=== PATIENT | female | born 2005 | race Caucasian/White ===

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

== ENCOUNTER → 2024-11-17 | Outpatient (CLI) | payer SELFPAY ==
[2024-11-17 09:29] LABS: hCG Titer Quant., Serum 149 mIU/mL (1-3)
== END | disposition home or self-care (01) ==
PROVIDERS: PCP Family Medicine; Referring Provider Advanced Practice Midwife; Visit Provider Advanced Practice Midwife
DX: O20.9 Hemorrhage in early pregnancy, unspecified (principal); Z3A.00 Weeks of gestation of pregnancy not specified

== ENCOUNTER → 2024-11-26 | Outpatient (CLI) | payer OTHER, SELFPAY ==
[2024-11-26 13:37] LABS: hCG Titer Quant., Serum 4 mIU/mL (1-3)
== END | disposition home or self-care (01) ==
LOC: LAB 12:22
PROVIDERS: PCP Family Medicine; Referring Provider Obstetrics & Gynecology; Visit Provider Obstetrics & Gynecology
DX: O03.9 Complete or unspecified spontaneous abortion without complication (principal)
CPT/HCPCS: 36415; 84702

== ENCOUNTER → 2024-12-23 | Outpatient (CLI) | payer OTHER, SELFPAY ==
[2024-12-23 16:26] LABS: hCG Titer Quant., Serum 809 mIU/mL (1-3)
== END | disposition home or self-care (01) ==
LOC: LAB 15:03
PROVIDERS: PCP Family Medicine; Referring Provider Obstetrics & Gynecology; Visit Provider Obstetrics & Gynecology
DX: Z34.90 Encounter for supervision of normal pregnancy, unspecified, unspecified trimester (principal)
CPT/HCPCS: 36415; 84702

== ENCOUNTER → 2024-12-25 | Outpatient (CLI) | payer OTHER, SELFPAY ==
[2024-12-25 14:33] LABS: hCG Titer Quant., Serum 1029 mIU/mL (1-3)
== END | disposition home or self-care (01) ==
LOC: LAB 12:38
PROVIDERS: PCP Family Medicine; Referring Provider Obstetrics & Gynecology; Visit Provider Obstetrics & Gynecology
DX: O09.299 Supervision of pregnancy with other poor reproductive or obstetric history, unspecified trimester (principal); Z3A.00 Weeks of gestation of pregnancy not specified
CPT/HCPCS: 36415; 84702

== ENCOUNTER → 2024-12-27 | Outpatient (CLI) | payer OTHER, SELFPAY ==
[2024-12-27 15:13] LABS: hCG Titer Quant., Serum 1408 mIU/mL (1-3)
== END | disposition home or self-care (01) ==
LOC: LAB 14:10
PROVIDERS: PCP Family Medicine; Referring Provider Obstetrics & Gynecology; Visit Provider Obstetrics & Gynecology
DX: O09.299 Supervision of pregnancy with other poor reproductive or obstetric history, unspecified trimester (principal); Z3A.00 Weeks of gestation of pregnancy not specified
CPT/HCPCS: 36415; 84702

== ENCOUNTER → 2024-12-31 | Outpatient (CLI) | payer OTHER, SELFPAY ==
--- NOTE | 2024-12-31 17:00 | US_ITS ---
PROCEDURE: TRANSVAGINAL W/PREG US REASON FOR EXAM: dating. Unknown LMP. COMPARISON: None. FINDINGS: Number of Gestational Sacs: 1 Gestational Sac Shape: Normal Number of Fetuses: 1 Heart Rate: Not detected at this time. (Average) Yolk Sac: Present and unremarkable. Placenta: Presently not well-visualized Amniotic Fluid Volume: Subjectively normal for gestational age. Uterine Abnormalities: Maternal uterus is unremarkable. It measures 9.1 cm x 6.2 cm x 4.7 cm. A nabothian cyst is seen. Ovaries / Adnexa: Both maternal ovaries are visualized and unremarkable. DIMENSIONS: Parameter Measurement / EGA [place] Rump Length: 2 mm/6 weeks and 0 days Gestational Sac: 7 mm/5 weeks and 3 days Yolk Sac: 2 mm/ ESTIMATED GESTATIONAL AGE: By Ultrasound: 5 weeks and 5 days By LMP: Unknown ESTIMATED DATE OF DELIVERY: By Ultrasound: August 28, 2025 By LMP: Unknown US/Transvaginal w/Preg US IMPRESSION: Intrauterine gestation with a mean gestational age of 5 weeks and 5 days. cardiac activity not noted at this time. Follow-up recommended. Reading Location: [facility]
== END | disposition home or self-care (01) ==
LOC: US 16:59
PROVIDERS: PCP Family Medicine; Referring Provider Obstetrics & Gynecology; Visit Provider Obstetrics & Gynecology
DX: O09.299 Supervision of pregnancy with other poor reproductive or obstetric history, unspecified trimester (principal); Z3A.00 Weeks of gestation of pregnancy not specified
CPT/HCPCS: 76817

== ENCOUNTER → 2025-01-04 | Outpatient (CLI) | payer OTHER, SELFPAY ==
[2025-01-04 13:36] LABS: hCG Titer Quant., Serum 2245 mIU/mL (<9 non-preg)
== END | disposition home or self-care (01) ==
LOC: US 10:14
PROVIDERS: Advanced Practice Midwife; PCP Family Medicine; Visit Provider Obstetrics & Gynecology
DX: O20.9 Hemorrhage in early pregnancy, unspecified (principal); Z3A.00 Weeks of gestation of pregnancy not specified
CPT/HCPCS: 36415; 84702

== ENCOUNTER → 2025-02-09 | Outpatient (CLI) | payer OTHER, SELFPAY ==
[2025-02-09 11:21] LABS: hCG Titer Quant., Serum < 1 mIU/mL (<9 non-preg)
== END | disposition home or self-care (01) ==
PROVIDERS: Obstetrics & Gynecology; PCP Family Medicine; Referring Provider Advanced Practice Midwife; Visit Provider Advanced Practice Midwife
DX: O03.9 Complete or unspecified spontaneous abortion without complication (principal)
CPT/HCPCS: 36415; 84702

== ENCOUNTER → 2025-05-06 | Outpatient (CLI) | payer OTHER, SELFPAY ==
[2025-05-06 12:49] LABS: Hematocrit 38.3 % (37-47); Hemoglobin 12.7 g/dL (12.0-15.0); Immature Granulocytes Count 0.010 X10^3/uL (0.0-0.0); Mean Corp Hgb Conc 33.2 g/dL (32-36); Mean Corpuscular Volume 89.3 fL (81-99); Mean Platelet Vol. 9.7 fl (6.2-12.0); NRBC Flagged by Analyzer 0 % (0-5); Platelet Count 220 K/mm3 (150-450); RBC Distribution Width CV 11.7 % (11.6-14.6); RBC Distribution Width SD 37.3 fl (35.1-43.9); Red Blood Count 4.29 M/mm3 (4.2-5.4); White Blood Count 7.4 K/mm3 (4.4-11.0)
[2025-05-06 13:16] LABS: AST(SGOT) 22 U/L (<=31); Alanine Aminotransfer ALT/SGPT 18 U/L (<=34); Albumin, Serum 4.3 g/dL (3.5-5.0); Alkaline Phosphatase 64 U/L (35-104); Anion Gap 9 (5-15); BUN 12 mg/dL (4-19); BUN/Creat Ratio 16.9 RATIO (10-20); Calcium,Total 9.3 mg/dL (7.6-11.0); Carbon Dioxide 25.0 mmol/L (21.0-32.0); Chloride 104 mmol/L (98-108); Globulin 3.0 g/dL (2.2-4.2); Glucose 101 mg/dL (70-99); Potassium 4.4 mmol/L (3.3-5.1)
== END | disposition home or self-care (01) ==
LOC: LAB 12:12
PROVIDERS: PCP Family Medicine; Referring Provider Family Medicine; Visit Provider Family Medicine
DX: R10.9 Unspecified abdominal pain (principal)
CPT/HCPCS: 36415; 80053; 85025; 85652

== ENCOUNTER → 2025-07-19 | Outpatient (CLI) | payer OTHER, SELFPAY ==
[2025-07-21 21:07] LABS: Chlamydia By Nucleic Acid AMP Positive (Negative); Gonococcus By Nucleic Acid AMP Negative (Negative)
== END | disposition home or self-care (01) ==
LOC: BWCLAB 16:08
PROVIDERS: PCP Family Medicine; Referring Provider Nurse Practitioner Women's Health; Visit Provider Nurse Practitioner Women's Health
DX: Z20.2 Contact with and (suspected) exposure to infections with a predominantly sexual mode of transmission (principal)
CPT/HCPCS: 87491; 87591

== ENCOUNTER → 2025-09-21 | Outpatient (CLI) | payer OTHER, SELFPAY ==
[2025-09-24 06:08] LABS: Chlamydia By Nucleic Acid AMP Negative (Negative); Gonococcus By Nucleic Acid AMP Negative (Negative)
== END | disposition home or self-care (01) ==
LOC: LABSPEC 16:22
PROVIDERS: PCP Family Medicine; Visit Provider Advanced Practice Midwife
DX: Z12.4 Encounter for screening for malignant neoplasm of cervix (principal); A74.9 Chlamydial infection, unspecified
CPT/HCPCS: 87491; 87591; 88175; G0145

== ENCOUNTER → 2025-09-24 | Outpatient (CLI) | payer OTHER, SELFPAY ==
[2025-09-24 10:51] LABS: hCG Titer Quant., Serum < 1 mIU/mL (<9 non-preg)
[2025-09-24 10:57] LABS: Vitamin D,25 Hydroxy 28.7 ng/mL (30-100)
[2025-09-25 04:07] LABS: PROLACTIN 22.4 ng/mL (4.8-33.4)
== END | disposition home or self-care (01) ==
LOC: LAB 08:33
PROVIDERS: PCP Family Medicine; Referring Provider Advanced Practice Midwife; Visit Provider Advanced Practice Midwife
DX: N64.52 Nipple discharge (principal)
CPT/HCPCS: 36415; 82306; 84146; 84439; 84443; 84702

== ENCOUNTER → 2025-10-07 | Outpatient (CLI) | payer OTHER, SELFPAY ==
--- NOTE | 2025-10-07 08:40 | US_ITS ---
PROCEDURE: BREAST LIMITED UNILATERAL 10/07/2025 REASON FOR EXAM: F, Age 20 y/o , GALACTORRHEA COMPARISON: None. TECHNIQUE: Procedure Code: USBRSTLIMIT Modality: US Procedure: BREAST LIMITED UNILATERAL. The retroareolar region of the right breast was examined with ultrasound. FINDINGS: No sonographic abnormality is seen. US/Breast Limited Unilateral IMPRESSION: No sonographic abnormality is seen. BI-RADS 1: NEGATIVE RECOMMENDATION: Routine annual follow-up in 1 Year [facility]
--- NOTE | 2025-10-07 08:40 | US_ITS ---
PROCEDURE: BREAST LIMITED UNILATERAL 10/07/2025 REASON FOR EXAM: F, Age 20 y/o , GALACTORRHEA COMPARISON: None. TECHNIQUE: Procedure Code: USBRSTLIMIT Modality: US Procedure: BREAST LIMITED UNILATERAL. The retroareolar region of the left breast was examined with ultrasound. FINDINGS: No sonographic abnormality is seen. US/Breast Limited Unilateral IMPRESSION: No sonographic abnormality is seen. BI-RADS 1: NEGATIVE RECOMMENDATION: Routine annual follow-up in 1 Year [facility]
== END | disposition home or self-care (01) ==
PROVIDERS: PCP Family Medicine; Referring Provider Advanced Practice Midwife; Visit Provider Advanced Practice Midwife
DX: N64.52 Nipple discharge (principal)
CPT/HCPCS: 76642